=== PATIENT | male | born 1965 | race Caucasian/White ===

== ENCOUNTER → 2022-02-06 09:36 | Outpatient (REF) | payer OTHER, SELFPAY | LOC: ANHLAB 09:36 | PROVIDERS: PCP Family Medicine; Visit Provider Nurse Practitioner | DX: R22.9 Localized swelling, mass and lump, unspecified (principal) | CPT/HCPCS: 88304 ==

== ENCOUNTER 2023-03-25 01:06 | Day surgery (SDC) | payer OTHER, SELFPAY ==
[2023-03-18 13:16] VITALS: BMI 25.0
--- NOTE | 2023-03-22 15:20 | PM.HPGS ---
History of Present Illness History of Present Illness Consent: Risks, benefits, and alternatives have been discussed and questions answered. Patient agrees to proceed with procedure. Chief complaint: neoplasm screening Narrative: Glenn Henderson is a 57 year old male Referred for colon cancer screening. Review of Systems Review of Systems: All systems reviewed & are unremarkable except as noted in HPI and below PMFSH Past Medical History Medical History BMI 26.0-26.9,adult Lipoma of back Skin cancer (melanoma) left zygomatic 03/2020 Family History Family History Sibling Skin cancer Unsure what kind of cancer Social History Social History Smoking status: Never smoker Alcohol intake: current Drinks per week: 6 Substance use: never Substance use type: does not use Living arrangements: with family Spiritual care concerns: No Meds Home Medications and Allergies Home Medications Medication Instructions Recorded Confirmed Type terbinafine HCl 250 mg tablet 250 mg PO DAILY 12/27/22 03/18/23 History testosterone cypionate 100 mg/mL 100 mg subcut WEEKLY 12/27/22 03/18/23 History intramuscular oil (Depo-Testosterone) Allergies Allergy/AdvReac Type Severity Reaction Status Date / Time No Known Allergies Allergy Verified 03/25/23 08:10 Exam Const: General: alert Orientation/consciousness: patient oriented x3 Resp: Auscultation: clear to auscultation bilaterally Cardio: Rhythm: regular rhythm GI: GI Palp: Yes Soft to palpation and No Tenderness to palpation present (GI) Neuro: General: patient oriented x3 Assessment and Plan Assessment and plan (1) Screening for colon cancer: Code(s): Z12.11 - Encounter for screening for malignant neoplasm of colon Status: Acute Assessment and Plan: Colonoscopy with possible biopsy or polypectomy or cautery or injection of substances.
[2023-03-25 08:11] VITALS: BP 159/88; PULSE 80; RESP 16; TEMP 36.8; O2SAT 99
[2023-03-25] MEDS: LACTATED RINGERS 1,000 ML 150 ML IV CONT (08:19)
--- NOTE | 2023-03-25 08:55 | P.PNAN_ITS ---
Anes - Initial Pre Proc Eval Procedure: Operation Date: 03/25/23 09:30 Proposed Procedures p Screening Colonoscopy - Ruben Sweet MD Date/Time: 03/25/23 08:55 Surgeon: Ruben Sweet MD Pre Op Diagnosis: neoplasm screening Patient Data Age: 57 Gender: M Height: 1.65 m Weight: 66.9 kg Last Vital Signs Temp 36.8 C 03/25/23 08:11 Pulse 80 03/25/23 08:11 Resp 16 03/25/23 08:11 BP 159/88 H 03/25/23 08:11 Pulse Ox 99 03/25/23 08:11 O2 Del Method Room Air 03/25/23 08:11 Allergies Allergy/AdvReac Type Severity Reaction Status Date / Time No Known Allergies Allergy Verified 03/25/23 08:10 Home Medications Medication Instructions Recorded Confirmed Type terbinafine HCl 250 mg tablet 250 mg PO DAILY 12/27/22 03/18/23 History testosterone cypionate 100 mg/mL 100 mg subcut WEEKLY 12/27/22 03/18/23 History intramuscular oil (Depo-Testosterone) Patient hx anesthesia problems: none Family hx anesthesia problems: none Results Review: All pre-operative results and documents have been reviewed as part of the pre- operative evaluation. [facility] Past Medical History Medical History BMI 26.0-26.9,adult Lipoma of back Skin cancer (melanoma) left zygomatic 03/2020 Family History Family History Sibling Skin cancer Unsure what kind of cancer Social History Social History Smoking status: Never smoker Alcohol intake: current Drinks per week: 6 Substance use: never Substance use type: does not use Living arrangements: with family Spiritual care concerns: No Anes - Eval Final PreProcedure Day of Procedure 03/25/23 08:55 Patient weight: normal Heart: regular rate and rhythm Lungs: clear to auscultation Airway: Mallampati scale class II Neurological: alert and oriented Last oral intake: >/= 8 hours ASA classification: I Emergent: no Anesthetic plan: proceed Anesthesia type and monitoring: general GIVS and standard monitoring Results Review: All pre-operative results and documents have been reviewed as part of the pre- operative evaluation. Informed Consent: The patient's anesthetic plan and its attendant risks and benefits were discussed with the patient/family/POA. Questions were solicited and answers provided to the satisfaction of the patient/family/POA.
[2023-03-25 09:55] VITALS: BP 114/72; PULSE 61; RESP 14; O2SAT 98
[2023-03-25 10:05] VITALS: BP 120/77; PULSE 60; RESP 18; O2SAT 97
[2023-03-25 10:15] VITALS: BP 133/86; PULSE 66; RESP 18; O2SAT 99
== END 2023-03-25 10:28 | disposition home or self-care (01) ==
PROVIDERS: PCP Physician Assistant; Visit Provider Internal Medicine Gastroenterology
PROC: 0DJD8ZZ Inspection of Lower Intestinal Tract, Via Natural or Artificial Opening Endoscopic (ICD-10-PCS; CPT 45378; principal; 2023-03-25 09:30)
DX: Z12.11 Encounter for screening for malignant neoplasm of colon (principal); K57.30 Diverticulosis of large intestine without perforation or abscess without bleeding
CPT/HCPCS: 45378; J2704; J7120